=== PATIENT | female | born 1950 | race Caucasian/White ===

== ENCOUNTER 2020-03-13 20:26 | Emergency (ER) | payer MEDICARE ==
[~2020-03-13] VITALS: Ht 162.6 cm; Wt 98.0 kg
[2020-03-13] MEDS ORDERED: LOSARTAN POTASS25 MG PO (21:19)
[2020-03-13] MEDS ORDERED: SYNTHROID112 MCG PO (21:19)
[2020-03-13] MEDS ORDERED: PREVACID30 M1 PO (21:20)
[2020-03-13] MEDS ORDERED: ZOLOFT50 MG PO (21:21)
[2020-03-13] MEDS ORDERED: LIPITOR10 M1 PO (21:21)
[2020-03-13] MEDS ORDERED: ASPIRIN81 MG PO (21:22)
[2020-03-13] MEDS ORDERED: CALCIUM1250 MG PO (21:24)
[2020-03-13] MEDS ORDERED: MULTI VIT PO (21:24)
[2020-03-13] MEDS ORDERED: VIT C/ACEROL500 M1 PO (21:25)
[2020-03-13] MEDS ORDERED: D32000 UNIT PO (21:26)
[2020-03-13] MEDS ORDERED: B-121000 MC1 PO (21:26)
[2020-03-13] MEDS ORDERED: B6 NATURAL100 MG PO (21:27)
[2020-03-13] MEDS ORDERED: XANAX0.5 MG PO (21:28)
[2020-03-13] MEDS ORDERED: CPAP (21:28)
[2020-03-13] MEDS ORDERED: PROAIR HFA IN (21:29)
[2020-03-13 21:37] LABS: HEMATOCRIT 40.7 % (37.0-47.0); HEMOGLOBIN 13.2 g/dl (12.0-16.0); IMMATURE GRANULOCYTES 0.5 % (0.0-5.0); MEAN CELL VOLUME 90.6 fL CALC (80.0-100.0); MEAN CORPUSCULAR HGB 29.4 pG CALC (26.0-32.0); MEAN CORPUSCULAR HGB CONC 32.4 g/dL CAL (32.0-36.0); NEUT# 5.03 thou/uL (2.00-7.15); RED BLOOD COUNT 4.49 mill/uL (4.20-5.60); RED CELL DISTRI WIDTH 13.1 % (11.5-15.5)
[2020-03-13 21:51] LABS: ALBUMIN 4.3 g/dL (3.2-5.0); ALKALINE PHOSPHATASE 126 u/l (38-126); ANION GAP 10 (6-22 (CALC)); BILIRUBIN, TOTAL 0.4 mg/dL (0.0-1.4); BUN 19 mg/dL (8-23); BUN/CREATININE RATIO 20 (12-20 (CALC)); CARBON DIOXIDE 28 mmol/l (22-30); CHLORIDE 102 mmol/l (95-108); CREATININE 0.9 mg/dL (0.5-1.0); GFR > 60 ML/MIN (>=60 (CALC)); GFR FOR AFR.AMER. > 60 ML/MIN (>=60 (CALC)); SGOT/AST 37 u/l (9-36); SODIUM 136 mmol/l (137-146); TOTAL PROTEIN 7.2 g/dL (6.3-8.2)
[2020-03-13 21:53] LABS: URINE BILIRUBIN - DIPSTICK NEGATIVE (NEGATIVE); URINE BLOOD DIPSTICK NEGATIVE (NEGATIVE); URINE COLOR YELLOW; URINE GLUCOSE - DIPSTICK NEGATIVE (NEGATIVE); URINE KETONE NEGATIVE (NEGATIVE); URINE LEUK ESTERASE NEGATIVE (NEGATIVE); URINE NITRITE - DIPSTICK NEGATIVE (Negative); URINE PROTEIN - DIPSTICK NEGATIVE (NEG-TRACE); URINE UROBILINOGEN - DIPSTICK 0.2 E.U./dL (0.2)
[2020-03-13 22:03] LABS: MYOGLOBIN 65 ng/mL (0 - 62)
[2020-03-14 01:36] VITALS: BP 123/59
== END 2020-03-14 01:36 | disposition home or self-care (01) ==
LOC: ED 20:26
PROVIDERS: Emergency Medicine
DX: R07.89 Other chest pain (principal); I10 Essential (primary) hypertension; E03.9 Hypothyroidism, unspecified; E78.00 Pure hypercholesterolemia, unspecified; F32.9 Major depressive disorder, single episode, unspecified; F41.9 Anxiety disorder, unspecified; K21.9 Gastro-esophageal reflux disease without esophagitis; J45.909 Unspecified asthma, uncomplicated